=== PATIENT | female | born 1965 | race Caucasian/White ===

== ENCOUNTER → 2016-03-18 | Outpatient (CLI) | payer OTHER ==
--- NOTE | 2016-03-18 22:47 | MA ---
Screening Digital Mammogram, With iCAD Analysis Clinical Indications: Routine screening. A sister was diagnosed with breast cancer premenopausally. Technique: Standard cephalocaudal and mediolateral oblique projections were obtained. This examinat ion was processed by the [employer] computer aided detection system. Comparison: January 2015, November 2013, September 2012, April 2008, April 2007. Breast Density: Type C; Heterogeneously dense. Findings: CAD was reviewed. No masses, suspicious calcifications, or other signs of malignancy are identified. There has been no significant change in the appearance of either breast. Impression: Negative mammogram. BI-RADS 1. Recommendation: Routine mammographic screening in one year as long as physical examination is negati ve in this patient with heterogeneously dense breasts. [facility] will send a result letter to the patient. Dense breast parenchyma diminishes mammographic sensitivity. Negative mammography should not preclude additional workup of a clinically suspicious finding. The patient's information is entered into a reminder system with a target due date for her next mammo gram.
== END ==
LOC: FIMAGING 15:58
DX: Z12.31 Encounter for screening mammogram for malignant neoplasm of breast (principal); Z80.3 Family history of malignant neoplasm of breast
CPT/HCPCS: G0202

== ENCOUNTER → 2017-03-22 | Outpatient (CLI) | payer OTHER | LOC: FIMAGING 15:51 | PROVIDERS: ATTEND Nurse Practitioner Family | DX: Z12.31 Encounter for screening mammogram for malignant neoplasm of breast (principal) ==

== ENCOUNTER 2017-06-23 14:12 | Observation (INO) | payer OTHER ==
[2017-06-23] MEDS ORDERED: MECLIZINE HCL 25 MG TAB PO ONE (15:26)
--- NOTE | 2017-06-23 15:30 | EDPHY ---
H & P Time Seen by Provider: 06/23/17 15:00 HPI/ROS: CHIEF COMPLAINT: Dizziness, headache, neck pain HISTORY OF PRESENT ILLNESS: Patient is a 52-year-old female who presents emergency department with multiple complaints. She states that she developed dizziness earlier this week. She describes intermittent episodes of vertigo. She feels as though the room is spinning. It is worse with movement of her head. She has minimal dizziness at this time. The patient also complains of intermittent headache. It is frontal headache that she describes as a"weight on her head."Patient also complains of left lateral neck plain extending to her left scapula. This pain is intermittent and mild to moderate. Patient also complains of epigastric abdominal discomfort. This does not radiate. No nausea vomiting. Patient reports that on Wednesday she had a subjective fever. This is resolved. Patient also describes that 1 week ago she had the veins in her left arm bulge. This has also resolved. No neck stiffness. no photophobia. REVIEW OF SYSTEMS: My complete review of systems is negative except as mentioned in the HPI. Past Medical/Surgical History: Includes hypercholesterolemia Past surgical history: Nasal surgery, cardiac catheterization(neg 2008) Social history: The patient does not smoke Smoking Status: Never smoked Physical Exam: 37, 126/60, 73, 16, 96% on room air GENERAL: No acute distress, alert. HEENT: Eyes normal to inspection, normal pharynx, no signs of dehydration. No ptosis. NECK: No thyromegaly, no lymphadenopathy, supple. RESPIRATORY: Clear to auscultation bilaterally, no rales, rhonchi or wheezing. CVS: Regular rate and rhythm, no rubs, murmurs, or gallops. ABDOMEN: Soft, nontender, nondistended, no organomegaly. BACK: Normal to inspection, no CVA tenderness. SKIN: Normal color, no rash, warm, dry. No pallor. EXTREMITIES: No pedal edema, no calf tenderness, no Homans sign or cords, no joint swelling. NEURO/PSYCH: Higher functions: Alert and Oriented x3. Normal speech and cognition. Normal mood and affect. Cranial nerves: Normal as tested. Cerebellar: Normal as tested. Good finger to nose, good [id number], normal gait. Peripheral exam: Normal motor exam. Normal sensation. Normal reflexes. Constitutional: Initial Vital Signs Temperature (C) 37 C 06/23/17 14:18 Heart Rate 73 06/23/17 14:18 Respiratory Rate 16 06/23/17 14:18 Blood Pressure 126/60 H 06/23/17 14:18 O2 Sat (%) 96 06/23/17 14:18 O2 Delivery Mode Room Air Allergies/Adverse Reactions: No Known Allergies Allergy (Verified 08/16/15 18:42) Home Medications: Medication Instructions Recorded Atorvastatin Calcium [Lipitor 40 40 mg PO HS 08/16/15 mg (*)] Aspirin EC [Aspirin EC 81 mg (*)] 81 mg PO HS 06/23/17 Herbals/Supplements -Info Only 1 ea PO DAILY 06/23/17 tiZANidine HCL [Zanaflex] 4 mg PO DAILY PRN 06/23/17 traMADol [Ultram 50 mg (*)] 50 mg PO DAILY PRN 06/23/17 Medical Decision Making - Diagnostics EKG Interpretation: EKG shows normal sinus rhythm, normal rate, normal axis, normal intervals. There are no ST or T-wave abnormalities. EKG is normal as interpreted by me. Imaging Results: Imaging Impressions Head CT 06/23/17 15:25 Impression: 1. Normal CT brain, without contrast. 2. Consider MRI of the brain, if there is continued clinical concern. Findings and recommendations discussed with Emergency Department physician, Kristine Avila M.D., at 1649 hours, on June 23, 2017. Final report concurs with initial preliminary interpretation. Head CTA 06/23/17 15:25 Impression: 1. No carotid or vertebral dissection, flow-limiting stenosis or occlusion. 2. No carotid atherosclerotic disease. Measurement of carotid stenosis is based on the residual internal carotid diameter with [place] Symptomatic Carotid Endarterectomy Trial (NASCET) based stenosis levels. CT Angiography of the Brain Clinical Indications: Dizzy, neck pain, left, headaches. Technique: CT angiogram of the brain and neck was performed with the uneventful intravenous administration of 90 mL Isovue-370 contrast. Multiplanar reconstructions including 3D reconstructions performed and evaluated on [employer] workstation in order to better evaluate the [place] vessels. Images were manipulated by the radiologist at the computer workstation. Dose reduction techniques were utilized. Findings: Major vessels of the [place] are adequately displayed, demonstrating no evidence of aneurysm, vascular malformation, flow-limiting stenosis, or occlusion. Bilateral cavernous internal carotid arteries and vertebrobasilar system demonstrates no evidence of flow-limiting stenosis, aneurysm, occlusion, or dissection. Superior sagittal sinus, transverse sinuses , and major veins demonstrate no evidence of intraluminal thrombi. Bilateral anterior cerebral arteries fed by a dominant left A1 segment which is a normal variant. No definite aneurysms. Impression: Negative CT angiogram of the brain. Findings and recommendations discussed with Emergency Department physician, Kristine Avila at 1658 hour, 06/23/2017. Final report concurs with initial preliminary interpretation. Neck CTA 06/23/17 15:25 Impression: 1. No carotid or vertebral dissection, flow-limiting stenosis or occlusion. 2. No carotid atherosclerotic disease. Measurement of carotid stenosis is based on the residual internal carotid diameter with [place] Symptomatic Carotid Endarterectomy Trial (NASCET) based stenosis levels. CT Angiography of the Brain Clinical Indications: Dizzy, neck pain, left, headaches. Technique: CT angiogram of the brain and neck was performed with the uneventful intravenous administration of 90 mL Isovue-370 contrast. Multiplanar reconstructions including 3D reconstructions performed and evaluated on [employer] [place] [employer] workstation in order to better evaluate the [place] vessels. Images were manipulated by the radiologist at the computer workstation. Dose reduction techniques were utilized. Findings: Major vessels of the [place] are adequately displayed, demonstrating no evidence of aneurysm, vascular malformation, flow-limiting stenosis, or occlusion. Bilateral cavernous internal carotid arteries and vertebrobasilar system demonstrates no evidence of flow-limiting stenosis, aneurysm, occlusion, or dissection. Superior sagittal sinus, transverse sinuses , and major veins demonstrate no evidence of intraluminal thrombi. Bilateral anterior cerebral arteries fed by a dominant left A1 segment which is a normal variant. No definite aneurysms. Impression: Negative CT angiogram of the brain. Findings and recommendations discussed with Emergency Department physician, Kristine Avila at 1658 hour, 06/23/2017. Final report concurs with initial preliminary interpretation. ED Course/Re-evaluation: In the emergency department I discussed possible etiologies with the patient and daughter. I answered all her questions. IV was placed. Laboratory studies and imaging were obtained. Reviewed the patient's laboratory studies. CBC and chemistry unremarkable. LFTs are normal. Lipase normal. Troponin pending. I reviewed the patient's laboratory studies. Of note the patient's troponin was elevated at 0.1. Head CT, CT angio head, CT angio neck: Please refer the dictated report by the radiologist. No acute disease noted. I discussed case with Dr. Kureger. I discussed the result with the patient and her daughter. I answered all her questions. Patient will be admitted for further observation. I discussed case with who will admit the patient. Differential Diagnosis: My differential includes but is not limited to viral illness, CVA, dissection, aneurysm, meningitis, encephalitis, peripheral vertigo, labyrinthitis, ACS, acute [place], pancreatitis, cholecystitis, small-bowel obstruction, perforation, GERD - Data Points Laboratory Results: Laboratory Results 06/23/17 15:45 06/23/17 15:45 06/23/17 06/23/17 06/23/17 15:45 15:45 15:45 WBC 5.05 10^3/uL 10^3/uL (3.80-9.50) RBC 4.60 10^6/uL 10^6/uL (4.18-5.33) Hgb 13.7 g/dL g/dL (12.6-16.3) Hct 41.6 % % (38.0-47.0) MCV 90.4 fL fL (81.5-99.8) MCH 29.8 pg pg (27.9-34.1) MCHC 32.9 g/dL g/dL (32.4-36.7) RDW 13.1 % % (11.5-15.2) Plt Count 227 10^3/uL 10^3/uL (150-400) MPV 10.4 fL fL (8.7-11.7) Neut % (Auto) 49.9 % % (39.3-74.2) Lymph % (Auto) 40.8 % % (15.0-45.0) [place] % (Auto) 6.5 % % (4.5-13.0) Eos % (Auto) 2.0 % % (0.6-7.6) Baso % (Auto) 0.6 % % (0.3-1.7) Nucleat RBC Rel Count 0.0 % % (0.0-0.2) Absolute Neuts (auto) 2.52 10^3/uL 10^3/uL (1.70-6.50) Absolute Lymphs (auto) 2.06 10^3/uL 10^3/uL (1.00-3.00) Absolute Monos (auto) 0.33 10^3/uL 10^3/uL (0.30-0.80) Absolute Eos (auto) 0.10 10^3/uL 10^3/uL (0.03-0.40) Absolute Basos (auto) 0.03 10^3/uL 10^3/uL (0.02-0.10) Absolute Nucleated RBC 0.00 10^3/uL 10^3/uL (0-0.01) Immature Gran % 0.2 % % (0.0-1.1) Immature Gran # 0.01 10^3/uL 10^3/uL (0.00-0.10) PT 12.5 SEC SEC (12.0-15.0) INR 0.91 (0.83-1.16) APTT 29.3 SEC SEC (23.0-38.0) Sodium 147 mEq/L H mEq/L (135-145) Potassium 4.4 mEq/L mEq/L (3.5-5.2) Chloride 106 mEq/L mEq/L (97-110) Carbon Dioxide 28 mEq/l mEq/l (22-31) Anion Gap 13 mEq/L mEq/L (8-16) BUN 13 mg/dL mg/dL (7-23) Creatinine 0.8 mg/dL mg/dL (0.6-1.0) Estimated GFR > 60 Glucose 102 mg/dL H mg/dL (70-100) Calcium 9.3 mg/dL mg/dL (8.5-10.4) Total Bilirubin 0.3 mg/dL mg/dL (0.1-1.4) Conjugated Bilirubin 0.3 mg/dL mg/dL (0.0-0.5) Unconjugated Bilirubin 0.0 mg/dL mg/dL (0.0-1.1) AST 24 IU/L IU/L (14-46) ALT 33 IU/L IU/L (9-52) Alkaline Phosphatase 103 IU/L IU/L (38-126) Troponin I 0.103 ng/mL H ng/mL (0.000-0.034) Total Protein 6.9 g/dL g/dL (6.3-8.2) Albumin 4.2 g/dL g/dL (3.5-5.0) Lipase 110 IU/L IU/L (23-300) Medications Given: Discontinued Medications Meclizine HCl (Meclizine Hcl) 25 mg PO EDNOW ONE Stop: 06/23/17 15:27 Last Admin: 06/23/17 15:47 Dose: 25 mg Departure - Departure Disposition: [facility] Inpatient Acute Clinical Impression: Dizziness, Neck pain, Elevated troponin Abdominal pain Qualifiers: Abdominal location: epigastric Qualified Code(s): R10.13 - Epigastric pain Condition: Good
--- NOTE | 2017-06-23 15:46 | CPEKG ---
Heart Rate: 61 RR Interval: 984 P-R Interval: 116 QRSD Interval: 92 QT Interval: 452 QTC Interval: 456 P [place]: 57 QRS [place]: 22 T Wave [place]: 18 EKG Severity - NORMAL ECG - EKG Impression: SINUS RHYTHM Electronically Signed By: Sai Bell 24-Jun-2017 17:28:53
[2017-06-23] MEDS ORDERED: IOPAMIDOL (ISOVUE 370) 100 ML BTL IV ONE (15:53)
[2017-06-23 15:58] LABS: PLATELET COUNT 227 10^3/uL (150-400)
[2017-06-23 16:07] LABS: INR 0.91 (0.83-1.16); PROTIME(PATIENT) 12.5 SEC (12.0-15.0)
[2017-06-23] MEDS ORDERED: traMADol 50 MG TAB PO PRN (17:52)
[2017-06-23] MEDS ORDERED: ONDANSETRON 4 MG/2 ML VIAL IVP PRN (17:53)
[2017-06-23] MEDS ORDERED: ONDANSETRON DISINTEGRATING 4 MG TAB PO PRN (17:53)
[2017-06-23] MEDS ORDERED: oxyCODONE IR 5 MG TAB PO PRN (17:53)
[2017-06-23] MEDS ORDERED: ACETAMINOPHEN 325 MG TAB PO PRN (17:53)
[2017-06-23] MEDS ORDERED: MECLIZINE HCL 25 MG TAB PO PRN (17:57)
[2017-06-23] MEDS ORDERED: POTASSIUM Cl (KCl) 20 MEQ in 1/2 NS 1,000 ML IV SCH (18:00)
--- NOTE | 2017-06-23 18:50 | PDGENHP ---
History and Physical - Chief Complaint Dizziness, headache, neck pain - History of Present Illness The patient is a 52-year-old female who presents with multiple complaints. She states that she developed dizziness earlier this week. She describes intermittent episodes of vertigo. She feels as though the room is spinning. It is worse with movement of her head. She has minimal dizziness at this time but it is present. In the E.D she was given Meclizine w/o much improvement. She has not noted nystagmus. She has not vomited. she does not have visual deficits. She does not have any focal weakness. She has intermittent suboccipital headaches and currently has one. The headache is positional and worse when she is lying on her back. She also complains of left lateral neck pain extending to her left scapula. This pain is intermittent and mild to moderate. She reports that on Wednesday she had a subjective fever. This is resolved. No neck stiffness. no photophobia. No sob. no abd pain at this time. No constitutional sxs. IN the ED she had CT of the brain and CTA of the neck and head all of which were unremarkable for acute findings. CBC, INR, BMP were unremarkable. Troponin was indeterminate. EKG did not show ischemia. She is being admitted for indeterminate troponin in the setting of left neck and scapula pain. Past Medical/Surgical History: hypercholesterolemia, [place] palsy Past surgical history: Nasal surgery, cardiac catheterization(neg 2008) Social history: The patient does not smoke History Information - Allergies/Home Medication List Allergies/Adverse Reactions: No Known Allergies Allergy (Verified 08/16/15 18:42) Home Medications: Atorvastatin Calcium [Lipitor 40 mg (*)] 40 mg PO HS 08/16/15 [Last Taken ] Aspirin EC [Aspirin EC 81 mg (*)] 81 mg PO HS 06/23/17 [Last Taken 06/23/17] Herbals/Supplements -Info Only 1 ea PO DAILY 06/23/17 [Last Taken 06/22/17] tiZANidine HCL [Zanaflex] 4 mg PO DAILY PRN 06/23/17 [Last Taken 06/21/17] traMADol [Ultram 50 mg (*)] 50 mg PO DAILY PRN 06/23/17 [Last Taken 06/22/17] I have personally reviewed and updated: medical history, social history - Social History Smoking Status: Never smoked Review of Systems Review of Systems: ROS: 10pt was reviewed & negative except for what was stated in HPI & below Physical Exam Physical Exam: Temp Pulse Resp BP Pulse Ox 36.6 C 67 20 141/73 H 97 06/23/17 17:39 06/23/17 17:39 06/23/17 17:39 06/23/17 17:39 06/23/17 17:39 Constitutional: no apparent distress, not in pain Eyes: PERRL, EOMI Ears, Nose, Mouth, Throat: hearing normal, ears appear normal, dry mucous membranes Cardiovascular: regular rate and rhythym Respiratory: no respiratory distress, no rales or rhonchi Gastrointestinal: normoactive bowel sounds, soft, non-tender abdomen Skin: warm Musculoskeletal: full muscle strength Neurologic: AAOx3, CN II-XII Intact, No weakness, No facial droop Psychiatric: interacting appropriately, not anxious, not encephalopathic Lymph, Heme, Immunologic: No petechiae Lab Data & Imaging Review 06/23/17 15:45 06/23/17 15:45 WBC 5.05 10^3/uL (3.80-9.50) 06/23/17 15:45 RBC 4.60 10^6/uL (4.18-5.33) 06/23/17 15:45 Hgb 13.7 g/dL (12.6-16.3) 06/23/17 15:45 Hct 41.6 % (38.0-47.0) 06/23/17 15:45 MCV 90.4 fL (81.5-99.8) 06/23/17 15:45 MCH 29.8 pg (27.9-34.1) 06/23/17 15:45 MCHC 32.9 g/dL (32.4-36.7) 06/23/17 15:45 RDW 13.1 % (11.5-15.2) 06/23/17 15:45 Plt Count 227 10^3/uL (150-400) 06/23/17 15:45 MPV 10.4 fL (8.7-11.7) 06/23/17 15:45 Neut % (Auto) 49.9 % (39.3-74.2) 06/23/17 15:45 Lymph % (Auto) 40.8 % (15.0-45.0) 06/23/17 15:45 [place] % (Auto) 6.5 % (4.5-13.0) 06/23/17 15:45 Eos % (Auto) 2.0 % (0.6-7.6) 06/23/17 15:45 Baso % (Auto) 0.6 % (0.3-1.7) 06/23/17 15:45 Nucleat RBC Rel Count 0.0 % (0.0-0.2) 06/23/17 15:45 Absolute Neuts (auto) 2.52 10^3/uL (1.70-6.50) 06/23/17 15:45 Absolute Lymphs (auto) 2.06 10^3/uL (1.00-3.00) 06/23/17 15:45 Absolute Monos (auto) 0.33 10^3/uL (0.30-0.80) 06/23/17 15:45 Absolute Eos (auto) 0.10 10^3/uL (0.03-0.40) 06/23/17 15:45 Absolute Basos (auto) 0.03 10^3/uL (0.02-0.10) 06/23/17 15:45 Absolute Nucleated RBC 0.00 10^3/uL (0-0.01) 06/23/17 15:45 Immature Gran % 0.2 % (0.0-1.1) 06/23/17 15:45 Immature Gran # 0.01 10^3/uL (0.00-0.10) 06/23/17 15:45 PT 12.5 SEC (12.0-15.0) 06/23/17 15:45 INR 0.91 (0.83-1.16) 06/23/17 15:45 APTT 29.3 SEC (23.0-38.0) 06/23/17 15:45 Sodium 147 mEq/L (135-145) H 06/23/17 15:45 Potassium 4.4 mEq/L (3.5-5.2) 06/23/17 15:45 Chloride 106 mEq/L (97-110) 06/23/17 15:45 Carbon Dioxide 28 mEq/l (22-31) 06/23/17 15:45 Anion Gap 13 mEq/L (8-16) 06/23/17 15:45 BUN 13 mg/dL (7-23) 06/23/17 15:45 Creatinine 0.8 mg/dL (0.6-1.0) 06/23/17 15:45 Estimated GFR > 60 06/23/17 15:45 Glucose 102 mg/dL (70-100) H 06/23/17 15:45 Calcium 9.3 mg/dL (8.5-10.4) 06/23/17 15:45 Total Bilirubin 0.3 mg/dL (0.1-1.4) 06/23/17 15:45 Conjugated Bilirubin 0.3 mg/dL (0.0-0.5) 06/23/17 15:45 Unconjugated Bilirubin 0.0 mg/dL (0.0-1.1) 06/23/17 15:45 AST 24 IU/L (14-46) 06/23/17 15:45 ALT 33 IU/L (9-52) 06/23/17 15:45 Alkaline Phosphatase 103 IU/L (38-126) 06/23/17 15:45 Troponin I 0.103 ng/mL (0.000-0.034) H 06/23/17 15:45 Total Protein 6.9 g/dL (6.3-8.2) 06/23/17 15:45 Albumin 4.2 g/dL (3.5-5.0) 06/23/17 15:45 Lipase 110 IU/L (23-300) 06/23/17 15:45 Assessment & Plan Assessment: #Left Neck pain, Left scapular pain, indeterminate troponin #Dizziness and Vertigo, possible BPV #MORALES #HLD #Dehydration Plan: Observation IVF tele trops tte PT to eval for Saurav If still with MORALES and vertigo, consider Brain MRI tomorrow check lipid pane and risk factors SCDS full code
[2017-06-23] MEDS ORDERED: ATORVASTATIN CALCIUM 40 MG TAB PO SCH (21:00)
[2017-06-23] MEDS ORDERED: ASPIRIN EC 81 MG TAB PO SCH (21:00)
[2017-06-24 04:53] LABS: PLATELET COUNT 204 10^3/uL (150-400)
[2017-06-24] MEDS ORDERED: Herbals/Supplements -Info Only PO SCH (09:00)
--- NOTE | 2017-06-24 09:07 | CPEKG ---
Heart Rate: 60 RR Interval: 1000 P-R Interval: 124 QRSD Interval: 84 QT Interval: 444 QTC Interval: 444 P [place]: 64 QRS [place]: 16 T Wave [place]: 17 EKG Severity - NORMAL ECG - EKG Impression: SINUS RHYTHM Electronically Signed By: Parish Novoa 24-Jun-2017 22:56:09
--- NOTE | 2017-06-24 09:59 | PDCARCONS ---
Cardiology Consult Reason for Consult: Elevated troponin, left scapular pain Chief Complaint: Vertigo symptoms, left scapular pain Requesting Physician: Hospitalist. History of Present Illness: Elva is a 52-year-old female, with a history hypercholesterolemia. Elva was admitted with symptoms of dizziness (room spinning), nausea, left scapular pain, and mild chest pressure. Her troponin was elevated in the ED at 0.1. Elva had a heart catheterization in 2008 that was normal. She had a stress echocardiogram 2 years ago that was also normal. Elva is no longer symptomatic. She admits increased stress lately because her mother 2 months ago. She does not have a family history of sudden cardiac . The patient is a nonsmoker. The patient is Kazakh speaking only. A waitangi tribunal member was present throughout the examination. History Information - Allergies/Home Medication List Allergies/Adverse Reactions: No Known Allergies Allergy (Verified 08/16/15 18:42) Home Medications: Atorvastatin Calcium [Lipitor 40 mg (*)] 40 mg PO HS 08/16/15 [Last Taken ] Aspirin EC [Aspirin EC 81 mg (*)] 81 mg PO HS 06/23/17 [Last Taken 06/23/17] Herbals/Supplements -Info Only 1 ea PO DAILY 06/23/17 [Last Taken 06/22/17] Ketoconazole 2% [Nizoral 2% Cream (*)] 1 brown TP DAILY PRN 06/23/17 [Last Taken 1 Week Ago ~06/16/17] tiZANidine HCL [Zanaflex] 4 mg PO DAILY PRN 06/23/17 [Last Taken 06/21/17] traMADol [Ultram 50 mg (*)] 50 mg PO DAILY PRN 06/23/17 [Last Taken 06/22/17] I have personally reviewed and updated: family history, medical history, social history, surgical history Past Medical History: High cholesterol, Guerra's Palsy - Past Medical History hyperlipidemia - Surgical History Additional surgical history: Nasal surgery, Cardiac catheterization 2008. - Family History Positive for: myocardial infarction Additional family history: No family history of sudden cardiac . 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 Cardiac History - Cardiac History Cardiac Risk Factors: lipidemia Timing/Duration: Days Severity: moderate Location: shoulder Activities at Onset: none Associated Symptoms: chest pain, nausea/vomiting, other (dizziness) Physical Exam Physical Exam: Temp Pulse Resp BP Pulse Ox 36.7 C 71 15 113/59 L 95 06/24/17 08:00 06/24/17 08:00 06/24/17 08:00 06/24/17 08:00 06/24/17 08:00 Constitutional: no apparent distress Eyes: PERRL Ears, Nose, Mouth, Throat: moist mucous membranes Cardiovascular: regular rate and rhythym Peripheral Pulses: 2+: carotid (R), carotid (L), femoral (R), femoral (L), dorsalis-pedis (R), dorsalis-pedis (L) Respiratory: no respiratory distress Gastrointestinal: normoactive bowel sounds Skin: warm, normal color Neurologic: AAOx3 Psychiatric: interacting appropriately Lab and Imaging 06/24/17 04:02 06/24/17 04:02 WBC 4.41 10^3/uL (3.80-9.50) 06/24/17 04:02 RBC 4.42 10^6/uL (4.18-5.33) 06/24/17 04:02 Hgb 13.1 g/dL (12.6-16.3) 06/24/17 04:02 Hct 39.8 % (38.0-47.0) 06/24/17 04:02 MCV 90.0 fL (81.5-99.8) 06/24/17 04:02 MCH 29.6 pg (27.9-34.1) 06/24/17 04:02 MCHC 32.9 g/dL (32.4-36.7) 06/24/17 04:02 RDW 13.2 % (11.5-15.2) 06/24/17 04:02 Plt Count 204 10^3/uL (150-400) 06/24/17 04:02 MPV 10.7 fL (8.7-11.7) 06/24/17 04:02 Neut % (Auto) 32.9 % (39.3-74.2) L 06/24/17 04:02 Lymph % (Auto) 54.6 % (15.0-45.0) H 06/24/17 04:02 Arthur % (Auto) 7.7 % (4.5-13.0) 06/24/17 04:02 Eos % (Auto) 3.9 % (0.6-7.6) 06/24/17 04:02 Baso % (Auto) 0.7 % (0.3-1.7) 06/24/17 04:02 Nucleat RBC Rel Count 0.0 % (0.0-0.2) 06/24/17 04:02 Absolute Neuts (auto) 1.45 10^3/uL (1.70-6.50) L 06/24/17 04:02 Absolute Lymphs (auto) 2.41 10^3/uL (1.00-3.00) 06/24/17 04:02 Absolute Monos (auto) 0.34 10^3/uL (0.30-0.80) 06/24/17 04:02 Absolute Eos (auto) 0.17 10^3/uL (0.03-0.40) 06/24/17 04:02 Absolute Basos (auto) 0.03 10^3/uL (0.02-0.10) 06/24/17 04:02 Absolute Nucleated RBC 0.00 10^3/uL (0-0.01) 06/24/17 04:02 Immature Gran % 0.2 % (0.0-1.1) 06/24/17 04:02 Immature Gran # 0.01 10^3/uL (0.00-0.10) 06/24/17 04:02 PT 12.5 SEC (12.0-15.0) 06/23/17 15:45 INR 0.91 (0.83-1.16) 06/23/17 15:45 APTT 29.3 SEC (23.0-38.0) 06/23/17 15:45 Sodium 143 mEq/L (135-145) 06/24/17 04:02 Potassium 4.5 mEq/L (3.5-5.2) 06/24/17 04:02 Chloride 109 mEq/L (97-110) 06/24/17 04:02 Carbon Dioxide 25 mEq/l (22-31) 06/24/17 04:02 Anion Gap 9 mEq/L (8-16) 06/24/17 04:02 BUN 14 mg/dL (7-23) 06/24/17 04:02 Creatinine 0.7 mg/dL (0.6-1.0) 06/24/17 04:02 Estimated GFR > 60 06/24/17 04:02 Glucose 88 mg/dL (70-100) 06/24/17 04:02 Calcium 8.8 mg/dL (8.5-10.4) 06/24/17 04:02 Magnesium 2.2 mg/dL (1.6-2.3) 06/24/17 04:02 Total Bilirubin 0.3 mg/dL (0.1-1.4) 06/23/17 15:45 Conjugated Bilirubin 0.3 mg/dL (0.0-0.5) 06/23/17 15:45 Unconjugated Bilirubin 0.0 mg/dL (0.0-1.1) 06/23/17 15:45 AST 24 IU/L (14-46) 06/23/17 15:45 ALT 33 IU/L (9-52) 06/23/17 15:45 Alkaline Phosphatase 103 IU/L (38-126) 06/23/17 15:45 Troponin I 0.087 ng/mL (0.000-0.034) H 06/24/17 04:02 Total Protein 6.9 g/dL (6.3-8.2) 06/23/17 15:45 Albumin 4.2 g/dL (3.5-5.0) 06/23/17 15:45 Triglycerides 51 mg/dL (35-135) 06/24/17 04:02 Cholesterol 166 mg/dL (140-220) 06/24/17 04:02 Cholesterol Risk Factr 0.5 (0.2-1.0) 06/24/17 04:02 LDL Cholesterol, Calc 103 mg/dL (80-100) H 06/24/17 04:02 LDL Risk Factor 0.6 (0.2-1.0) 06/24/17 04:02 VLDL Cholesterol 10 mg/dL (8-25) 06/24/17 04:02 Non-HDL Cholesterol 113 mg/dL (90-129) 06/24/17 04:02 HDL Cholesterol 53 mg/dL (40-85) 06/24/17 04:02 LDL/HDL Ratio 1.94 RATIO (1.00-3.22) 06/24/17 04:02 Cholesterol/HDL Ratio 3.13 RATIO (1.00-4.44) 06/24/17 04:02 Lipase 110 IU/L (23-300) 06/23/17 15:45 TSH 1.380 uIU/mL (0.465-4.680) 06/24/17 04:02 Chest X-ray Interpretation: normal EKG Interpretation: Positive for: normal sinsus rhythm Telemetry: I reviewed the raw data from the rhythm strips. She is in normal sinus rhythm. Echocardiogram: I looked at her echocardiogram. The echo appears normal. There are no segmental wall motion abnormalities. Specifically apical ballooning cardiomyopathy was ruled out. I reviewed the raw data of the images with Dr. Novoa. A/P Assessment: Elva was admitted with a positive troponin and symptoms of left scapular pain , neck tightness, dizziness and nausea thought to be anginal equivalent. I examined the patient today, she is no longer symptomatic. Her EKG shows normal sinus rhythm. Her echocardiogram is normal. She had neck CTA and head CT and CTA that were all normal. Elva had a normal angiogram in 2008. I think her symptoms are likely related to vertigo as she described a room spinning sensation that resolved with Meclizine. Her troponin today is trending down ( originally 0.103, now 0.087). I would like her to have a stress test to evaluate her heart rate and blood pressure response to exercise. If this test is normal, then I think it would be safe for the patient to be discharged home. Plan: The patient has a normal echocardiogram. I ordered a stress test to evaluate her heart rate and blood pressure response to exercise. If this test is normal, then I think it is safe for the patient to go home. 1430: I supervised the EKG stress test. The patient went 9 minutes on Ronny Protocol. Her resting EKG shows no evidence of infarction. Her ST segments at peak exercise and early recovery were normal. Of note, there was a biphasic T wave in V3 and slightly negative T wave inversions in V4, V5, V6 that increased with exercise. The T waves normalized with increased exercise and remained normal. The patient is doing well from a cardiac standpoint. She had a normal cardiac workup and I think it is safe for the patient to be discharged home. We recommend she follow up with [facility] with ongoing symptoms. The patient knows to present to the emergency department immediately if she experiences chest pain/pressure/tightness, syncope, near-syncope, or other cardiac symptoms of concern prior to her next visit.
--- NOTE | 2017-06-24 10:27 | ECHO ---
[email or web address] [address] [address] Main: [phone] Fax: Transthoracic Echocardiogram Name: NAREN IQBAL MR#: [id number] Study Date: 06/24/2017 Study Time: 08:16 AM Date of : 1965 Age: 52 year(s) Height: ( ) Weight: ( ) BSA: Gender: Female Examination: Echo Indication: Chest Pain, indeterminate troponin Image Quality: Contrast: Requested by: Esau Leija BP: 113 mmHg/59 mmHg Heart Rate: Rhythm: Indication: Chest Pain, indeterminate troponin Procedure Staff Tactical Response Group Officer: Cb Razo RDCS Reading Physician: Parish Novoa MD Requesting Provider: Conclusions: Normal size left ventricle. No LV hypertrophy. Normal global systolic LV function. EF is 61 %. The mitral valve is normal in appearance and function. The aortic valve is normal in appearance and function. Measurements: Chambers Valvular Assessment AV/MV Valvular Assessment TV/PV Normal Normal Normal Name Value Range Name Value Range Name Value Range Ao Marya (MM): 3.1 cm (2.2 cm-3.7 AV Vmax: 1.33 m/s (1 m/s-1.7 TR Vmax: 2.35 mm/s ( - ) cm) m/s) TR PGmax: 22 mmHg ( - ) IVSd (2D): 0.8 cm (0.6 cm-1.1 AV maxP mmHg ( - ) syst. PAP: 27 mmHg ( - ) cm) LVOT Vmax: 0.92 m/s (0.7 m/s-1.1 PV Vmax: 0.94 m/s (0.6 m/s-0.9 LVDd (2D): 4.8 cm (3.9 cm-5.3 m/s) m/s) cm) MV E Vmax: 0.74 m/s ( - ) PV PGmax: 4 mmHg ( - ) LVDs (2D): 3.2 cm (2.1 cm-4 MV A Vmax: 0.42 m/s ( - ) cm) MV E/A: 1.76 ( - ) LVPWd (2D): 1.1 cm ( - ) LVEF (2D): 61 (>=54 %) Continued Measurements: Chambers Valvular Assessment AV/MV Valvular Assessment TV/PV Name Value Name Value Name Value LADs Lon.3 cm MV E' Septal: 0.07 m/s CVP (est.): 5 mmHg LA Area: 17.6 cm2 MV E/E' Septal: 10.10 LA Volume: 55 ml MV E/E' Lateral: 6.30 Patient: NAREN IQBLA Study Date: 06/24/2017 Page 1 of 2 08:16 AM Findings: Left Ventricle: Normal size left ventricle. No LV hypertrophy. Normal global systolic LV function. EF is 61 %. No regional wall motion abnormality. Normal diastolic LV function. Right Ventricle: Normal size right ventricle. Normal RV function. Left Atrium: The left atrium is mildly dilated. Right Atrium: The right atrium is normal in size. Mitral Valve: The mitral valve is normal in appearance and function. Aortic Valve: The aortic valve is normal in appearance and function. Tricuspid Valve: The tricuspid valve is normal in appearance and function. Pulmonic Valve: Pulmonary valve not well visualized. Aorta: The aorta is normal. Pericardium: No pericardial effusion. (No Signature Object) Patient: NAREN IQBAL Study Date: 06/24/2017 Page 2 of 2 08:16 AM [id number]
--- NOTE | 2017-06-24 13:20 | ASMTCASEMG ---
Living Arrangements What is your living Answers: With Spouse arrangement? Who do you live with? Type Of Residence What kind of residence do Answers: House you live in? Discharge Plan Comments Coordination Status Comments Notes: Pts case discussed in morning rounds. Pt is italian speaking only. Pt is a 52 y/o female admitted for chest pain and vertigo. Pt reports that she does not have any needs at this time. Pt is able to ambulate independently. Pt will most likely d/c without any needs. CM available for changes. Plan: Independent Date Signed: 06/24/2017 01:19 PM Electronically Signed By:DUTCH Davila
[2017-06-24 15:05] VITALS: BP 95/55
--- NOTE | 2017-06-24 15:40 | GDS ---
[f rep st] DISCHARGE SUMMARY ALL DIAGNOSES: 1. Likely vertigo. 2. Left neck pain, left scapular pain. 3. Indeterminate troponin. 4. Hyperlipidemia. 5. Hyponatremia. HOSPITAL COURSE: A 52-year-old female, admitted with intermittent dizziness. This was also associat ed with left scapular pain, left neck pain and some chest pain. Notably, her symptoms have resolved the day after admission. Her troponins were noted to be indeterminate with peaking at 0.1. Because of this, she received cardiology consultation who recommended a stress test. Per Dr. Rosado's report , she passed her stress test. She is safe to be discharged home at this point. I have given her a prescription for meclizine as needed for ongoing dizziness. She may follow up wit h Cardiology as needed. I have discussed this all with her with the help of visualization developer. Pasha nagy is discharged in stable condition. /[id number]/MODL
--- NOTE | 2017-06-24 16:26 | CPIP ---
[f rep st] INVASIVE CARDIAC PROCEDURE DATE OF PROCEDURE: 06/24/2017 Supervision interpretation of an EKG stress test. PROCEDURE PERFORMED: Ronny protocol graded exercise treadmill test. INDICATION FOR THE PROCEDURE: Upper shoulder and back pain thought to be a possible anginal equivale nt in a patient with elevated cholesterol as a risk factor for coronary disease and evidence of an el evated troponin on a measurement in the emergency department. PROCEDURE IN DETAIL: The patient underwent standard Ronny protocol treadmill testing in the stress l ab at the hospital. The patient went 9 minutes on a Ronny protocol treadmill test without ST-segment shift suggestive of myocardial ischemia. The resting EKG revealed normal sinus rhythm without evide nce of infarction. There was a biphasic T-wave in V3 and slightly negative T-wave in V4, V5, and V6. This was approximately 2-3 mm in size. With exercise, changes became slightly more prominent with T-wave inversions in V4, V5, V6. There was upsloping ST-segment depression with exercise of approxim ately 1.5 mm 60 msec out past the J-point. The T-waves reverted to normal during exercise and remain ed such throughout the remainder of the study. There was appropriate heart rate and blood pressure response to exercise and the patient's Solorzano tread mill score was calculated at 9, given that the ST segments at peak exercise and with early recovery w ere noted to be normal. IMPRESSION: Normal Ronny protocol treadmill test. The patient appears to be a good candidate for ea rly discharge from the cardiac standpoint with careful followup. The patient does report promptly to the emergency department should she experience upper back or neck pain again or has symptoms with ex ertion. Of note is that the patient had no clinical symptoms of angina, back or upper chest discomfo rt during the Ronny protocol treadmill test and her exercise tolerance was excellent for age. /[id number]/MODL
== END 2017-06-24 16:45 | disposition home or self-care (01) ==
LOC: F2W 17:37
PROVIDERS: ADMIT Family Medicine; ATTEND Student in an Organized Health Care Education/Training Program
DX: R42 Dizziness and giddiness (principal); M54.2 Cervicalgia; R79.89 Other specified abnormal findings of blood chemistry; E87.0 Hyperosmolality and hypernatremia; R07.9 Chest pain, unspecified; M25.512 Pain in left shoulder; R51 Headache; E86.0 Dehydration; E78.00 Pure hypercholesterolemia, unspecified; Z82.49 Family history of ischemic heart disease and other diseases of the circulatory system
CPT/HCPCS: 70450; 70496; 70498; 93005; 93017; 93306; 97161; 99285; G0378; J3480; Q9967

== ENCOUNTER → 2018-04-15 | Outpatient (CLI) | payer OTHER | LOC: FIMAGING 15:48 | DX: Z12.31 Encounter for screening mammogram for malignant neoplasm of breast (principal); Z80.3 Family history of malignant neoplasm of breast ==